=== PATIENT | male | born 1960 | race Caucasian/White ===

== ENCOUNTER 2020-03-22 14:45 | Inpatient (IN) | payer OTHER ==
[2020-03-22 16:28] VITALS: BMI 27.8
[2020-03-22] MEDS ORDERED: ACETAMINOPHEN 325 MG TABLET (FP) PO PRN ×3 (17:46→18:46)
[2020-03-22] MEDS ORDERED: MAGNESIUM CITRATE 300 ML BOTTLE PO PRN ×2 (17:46→18:46)
[2020-03-22] MEDS ORDERED: MAGNESIUM HYDROX 2400MG/30ML ORAL SUSPENSION 30 ML CUP PO PRN (17:46)
[2020-03-22] MEDS ORDERED: MAG HYDROX/AL HYDROX/SIMETH 30 ML UNIT-DOSE CUP PO PRN ×2 (17:46→18:46)
[2020-03-22] MEDS ORDERED: METHOCARBAMOL 500 MG TABLET PO PRN (17:46)
[2020-03-22] MEDS ORDERED: IBUPROFEN 400 MG TABLET (FP) PO PRN ×2 (17:46→18:46)
[2020-03-22] MEDS ORDERED: BISMUTH SUBSALICYLATE 524 MG/30 ML UD PO PRN (17:46)
[2020-03-22] MEDS ORDERED: chlordiazePOXIDE HCL 25 MG CAPSULE PO PRN (17:46)
[2020-03-22] MEDS ORDERED: ONDANSETRON *ODT* 4 MG TABLET SL PRN (17:46)
[2020-03-22] MEDS ORDERED: MENTHOL/PHENOL 1 EACH UD MM PRN (17:46)
[2020-03-22] MEDS ORDERED: LOPERAMIDE HCL 2 MG CAPSULE PO PRN (18:46)
[2020-03-22] MEDS ORDERED: P-EPHED 60MG/TRIPROLIDI 2.5MG TABLET PO PRN (18:46)
[2020-03-22] MEDS ORDERED: guaiFENesin 200 MG/10 ML 10 ML UNIT-DOSE CUPS PO PRN (18:46)
[2020-03-22] MEDS ORDERED: TUBERCULIN PPD 5 TU/0.1ML VIAL ID ONE (19:38)
[2020-03-22] MEDS ORDERED: THIAMINE HCL 100 MG TABLET (FP) PO SCH (22:00)
[2020-03-22] MEDS ORDERED: MELATONIN 5 MG TABLETS PO SCH (22:00)
[2020-03-22] MEDS: MELATONIN 5 MG TABLETS PO SCH (22:06)
[2020-03-22] MEDS: THIAMINE HCL 100 MG TABLET (FP) PO SCH (22:09)
[2020-03-22] MEDS ORDERED: chlordiazePOXIDE HCL 25 MG CAPSULE PO SCH (23:00)
[2020-03-23] MEDS ORDERED: MASKS NR ONE (06:23)
[2020-03-23] MEDS: PRENATAL VITAMINS W/ FOLIC ACID TABLET (FP) PO SCH (09:19)
[2020-03-23] MEDS ORDERED: PRENATAL VITAMINS W/ FOLIC ACID TABLET (FP) PO SCH (10:00)
[2020-03-23] MEDS ORDERED: METHADONE HCL 10 MG TABLET PO ONE (10:15)
[2020-03-23 12:09] LABS: HEMATOCRIT 28.4 % (35.4-49); HEMOGLOBIN 9.5 GM/dL (11.7-16.9); MCH 32.1 pg (25.7-33.7); MCHC 33.4 g/dl (32.0-35.9); MEAN CELL VOLUME 96.1 fl (80-96); MEAN PLT VOLUME 8.1 fl (7.5-11.1); PLATELET COUNT 280 K/MM3 (134-434); POTASSIUM 4.8 mmol/L (3.5-5.1); RBC 2.95 M/mm3 (4.00-5.60); RDW 14.7 % (11.9-15.9); WHITE BLOOD COUNT 6.8 K/mm3 (4.0-10.0)
[2020-03-23 12:13] LABS: CALCIUM 9.2 mg/dL (8.5-10.1)
[2020-03-23 12:15] LABS: ALBUMIN 2.8 g/dl (3.4-5.0); BLOOD UREA NITROGEN 50.7 mg/dL (7-18)
[2020-03-23 12:16] LABS: BILIRUBIN,TOTAL 0.5 mg/dL (0.2-1); TOT PROT 6.3 g/dl (6.4-8.2)
[2020-03-23] MEDS: ASPIRIN COATED 81 MG TABLET.EC PO SCH (12:16)
[2020-03-23 12:17] LABS: CREATININE 3.6 mg/dL (0.55-1.3)
[2020-03-23 16:01] LABS: HIV INTERPRETATION NEGATIVE (NEGATIVE)
[2020-03-23] MEDS: THIAMINE HCL 100 MG TABLET (FP) PO SCH (21:33)
[2020-03-23] MEDS: METOPROLOL TARTRATE 25 MG TABLET (FP) PO SCH (21:33)
[2020-03-23] MEDS: MELATONIN 5 MG TABLETS PO SCH (21:33)
[2020-03-24] MEDS ORDERED: chlordiazePOXIDE HCL 25 MG CAPSULE PO SCH (05:00)
[2020-03-24] MEDS: METHADONE HCL 10 MG TABLET PO SCH (06:28)
[2020-03-24] MEDS: METOPROLOL TARTRATE 25 MG TABLET (FP) PO SCH ×2 (10:15→21:19)
[2020-03-24] MEDS: ASPIRIN COATED 81 MG TABLET.EC PO SCH (10:15)
[2020-03-24] MEDS: PRENATAL VITAMINS W/ FOLIC ACID TABLET (FP) PO SCH (10:16)
[2020-03-24 12:20] LABS: URINE APPEARANCE CLEAR; URINE BILIRUBIN NEGATIVE (NEGATIVE); URINE COLOR YELLOW; URINE GLUCOSE (UA) NEGATIVE (NEGATIVE); URINE KETONE NEGATIVE (NEGATIVE); URINE LEUK ESTERASE NEGATIVE (NEGATIVE); URINE NITRITE NEGATIVE (NEGATIVE); URINE PROTEIN NEGATIVE (NEGATIVE); URINE UROBILINOGEN 0.2 mg/dL (0.2-1.0)
[2020-03-24] MEDS: MELATONIN 5 MG TABLETS PO SCH (21:19)
[2020-03-24] MEDS: THIAMINE HCL 100 MG TABLET (FP) PO SCH (21:19)
[2020-03-25] MEDS ORDERED: chlordiazePOXIDE HCL 10 MG CAPSULE PO PRN
[2020-03-25] MEDS ORDERED: chlordiazePOXIDE HCL 10 MG CAPSULE PO SCH (05:00)
[2020-03-25] MEDS: METHADONE HCL 10 MG TABLET PO SCH (06:21)
[2020-03-25] MEDS: METOPROLOL TARTRATE 25 MG TABLET (FP) PO SCH ×2 (09:45→21:50)
[2020-03-25] MEDS: PRENATAL VITAMINS W/ FOLIC ACID TABLET (FP) PO SCH (09:45)
[2020-03-25] MEDS: ASPIRIN COATED 81 MG TABLET.EC PO SCH (09:45)
[2020-03-25] MEDS: FERROUS SO4 325 MG TABLET (FP) PO SCH ×2 (12:59→17:50)
[2020-03-25] MEDS: CEPHALEXIN MONOHYDRATE 500 MG CAPSULE (UD) PO SCH ×3 (12:59→23:24)
[2020-03-25] MEDS: DOCUSATE SODIUM 100 MG CAPSULE (FP) PO SCH ×2 (13:01→21:50)
[2020-03-25] MEDS: THIAMINE HCL 100 MG TABLET (FP) PO SCH (21:50)
[2020-03-25] MEDS: MELATONIN 5 MG TABLETS PO SCH (21:50)
[2020-03-26] MEDS ORDERED: chlordiazePOXIDE HCL 10 MG CAPSULE PO SCH (05:00)
[2020-03-26] MEDS: CEPHALEXIN MONOHYDRATE 500 MG CAPSULE (UD) PO SCH ×4 (06:13→23:03)
[2020-03-26] MEDS: METHADONE HCL 10 MG TABLET PO SCH (06:13)
[2020-03-26] MEDS: DOCUSATE SODIUM 100 MG CAPSULE (FP) PO SCH ×3 (06:14→21:16)
[2020-03-26] MEDS: METOPROLOL TARTRATE 25 MG TABLET (FP) PO SCH ×2 (10:25→21:16)
[2020-03-26] MEDS: FERROUS SO4 325 MG TABLET (FP) PO SCH ×3 (10:25→16:52)
[2020-03-26] MEDS: PRENATAL VITAMINS W/ FOLIC ACID TABLET (FP) PO SCH (10:25)
[2020-03-26] MEDS: ASPIRIN COATED 81 MG TABLET.EC PO SCH (10:25)
[2020-03-26] MEDS: THIAMINE HCL 100 MG TABLET (FP) PO SCH (21:16)
[2020-03-26] MEDS: MELATONIN 5 MG TABLETS PO SCH (21:17)
[2020-03-26] MEDS: MAGNESIUM HYDROX 2400MG/30ML ORAL SUSPENSION 30 ML CUP PO PRN (21:18)
[2020-03-27] MEDS ORDERED: chlordiazePOXIDE HCL 10 MG CAPSULE PO ONE (05:00)
[2020-03-27] MEDS: METHADONE HCL 10 MG TABLET PO SCH (06:39)
[2020-03-27] MEDS: CEPHALEXIN MONOHYDRATE 500 MG CAPSULE (UD) PO SCH ×3 (06:39→17:00)
[2020-03-27] MEDS: DOCUSATE SODIUM 100 MG CAPSULE (FP) PO SCH ×3 (06:39→21:16)
[2020-03-27] MEDS: METOPROLOL TARTRATE 25 MG TABLET (FP) PO SCH ×2 (09:32→21:16)
[2020-03-27] MEDS: ASPIRIN COATED 81 MG TABLET.EC PO SCH (09:32)
[2020-03-27] MEDS: PRENATAL VITAMINS W/ FOLIC ACID TABLET (FP) PO SCH (09:32)
[2020-03-27] MEDS: FERROUS SO4 325 MG TABLET (FP) PO SCH ×3 (09:32→17:00)
[2020-03-27] MEDS: THIAMINE HCL 100 MG TABLET (FP) PO SCH (21:16)
[2020-03-27] MEDS: MELATONIN 5 MG TABLETS PO SCH (21:16)
[2020-03-27] MEDS: MAGNESIUM HYDROX 2400MG/30ML ORAL SUSPENSION 30 ML CUP PO PRN (21:17)
[2020-03-28] MEDS: CEPHALEXIN MONOHYDRATE 500 MG CAPSULE (UD) PO SCH ×4 (00:35→18:10)
[2020-03-28] MEDS: METHADONE HCL 10 MG TABLET PO SCH (06:18)
[2020-03-28] MEDS: DOCUSATE SODIUM 100 MG CAPSULE (FP) PO SCH ×3 (06:19→21:41)
[2020-03-28] MEDS: FERROUS SO4 325 MG TABLET (FP) PO SCH ×3 (07:22→18:10)
[2020-03-28] MEDS: ASPIRIN COATED 81 MG TABLET.EC PO SCH (09:16)
[2020-03-28] MEDS: PRENATAL VITAMINS W/ FOLIC ACID TABLET (FP) PO SCH (09:16)
[2020-03-28] MEDS: METOPROLOL TARTRATE 25 MG TABLET (FP) PO SCH ×2 (09:16→21:40)
[2020-03-28] MEDS: THIAMINE HCL 100 MG TABLET (FP) PO SCH (21:41)
[2020-03-28] MEDS: MELATONIN 5 MG TABLETS PO SCH (21:41)
[2020-03-29] MEDS: CEPHALEXIN MONOHYDRATE 500 MG CAPSULE (UD) PO SCH ×5 (00:02→23:26)
[2020-03-29] MEDS: METHADONE HCL 10 MG TABLET PO SCH (06:17)
[2020-03-29] MEDS: DOCUSATE SODIUM 100 MG CAPSULE (FP) PO SCH ×3 (06:17→21:04)
[2020-03-29] MEDS: METOPROLOL TARTRATE 25 MG TABLET (FP) PO SCH ×2 (09:51→21:04)
[2020-03-29] MEDS: FERROUS SO4 325 MG TABLET (FP) PO SCH ×3 (09:51→18:17)
[2020-03-29] MEDS: PRENATAL VITAMINS W/ FOLIC ACID TABLET (FP) PO SCH (09:51)
[2020-03-29] MEDS: ASPIRIN COATED 81 MG TABLET.EC PO SCH (09:51)
[2020-03-29] MEDS: THIAMINE HCL 100 MG TABLET (FP) PO SCH (21:04)
[2020-03-29] MEDS: MELATONIN 5 MG TABLETS PO SCH (21:04)
[2020-03-30] MEDS: DOCUSATE SODIUM 100 MG CAPSULE (FP) PO SCH ×3 (06:23→21:32)
[2020-03-30] MEDS: CEPHALEXIN MONOHYDRATE 500 MG CAPSULE (UD) PO SCH ×4 (06:23→23:14)
[2020-03-30] MEDS: METHADONE HCL 10 MG TABLET PO SCH (06:23)
[2020-03-30] MEDS: ASPIRIN COATED 81 MG TABLET.EC PO SCH (10:13)
[2020-03-30] MEDS: METOPROLOL TARTRATE 25 MG TABLET (FP) PO SCH ×2 (10:13→21:32)
[2020-03-30] MEDS: FERROUS SO4 325 MG TABLET (FP) PO SCH ×3 (10:13→17:36)
[2020-03-30] MEDS: PRENATAL VITAMINS W/ FOLIC ACID TABLET (FP) PO SCH (10:14)
[2020-03-30] MEDS: MELATONIN 5 MG TABLETS PO SCH (21:32)
[2020-03-30] MEDS: THIAMINE HCL 100 MG TABLET (FP) PO SCH (21:32)
[2020-03-31] MEDS: DOCUSATE SODIUM 100 MG CAPSULE (FP) PO SCH ×3 (06:02→21:44)
[2020-03-31] MEDS: CEPHALEXIN MONOHYDRATE 500 MG CAPSULE (UD) PO SCH ×4 (06:02→23:48)
[2020-03-31] MEDS: METHADONE HCL 10 MG TABLET PO SCH (06:02)
[2020-03-31] MEDS: FERROUS SO4 325 MG TABLET (FP) PO SCH ×3 (09:56→17:04)
[2020-03-31] MEDS: METOPROLOL TARTRATE 25 MG TABLET (FP) PO SCH ×2 (09:56→21:44)
[2020-03-31] MEDS: ASPIRIN COATED 81 MG TABLET.EC PO SCH (09:56)
[2020-03-31] MEDS: PRENATAL VITAMINS W/ FOLIC ACID TABLET (FP) PO SCH (09:57)
[2020-03-31] MEDS: MELATONIN 5 MG TABLETS PO SCH (21:44)
[2020-03-31] MEDS: THIAMINE HCL 100 MG TABLET (FP) PO SCH (21:44)
[2020-04-01] MEDS: DOCUSATE SODIUM 100 MG CAPSULE (FP) PO SCH (06:07)
[2020-04-01] MEDS: METHADONE HCL 10 MG TABLET PO SCH (06:07)
[2020-04-01] MEDS: CEPHALEXIN MONOHYDRATE 500 MG CAPSULE (UD) PO SCH (06:07)
[2020-04-01 07:03] VITALS: BP 137/74; PULSE 72; TEMP 98
[2020-04-01] MEDS: FERROUS SO4 325 MG TABLET (FP) PO SCH (09:37)
[2020-04-01] MEDS: METOPROLOL TARTRATE 25 MG TABLET (FP) PO SCH (09:38)
[2020-04-01] MEDS: ASPIRIN COATED 81 MG TABLET.EC PO SCH (09:38)
[2020-04-01] MEDS: PRENATAL VITAMINS W/ FOLIC ACID TABLET (FP) PO SCH (09:38)
== END 2020-04-01 09:54 | disposition home or self-care (01) | DRG 895 ==
LOC: YASAS 14:45 → Y6N 18:05 → UNDOADMIN 18:05 → Y5N 19:13
PROVIDERS: ADMIT Allergy & Immunology; ATTEND Allergy & Immunology
PROC: HZ42ZZZ Group Counseling for Substance Abuse Treatment, Cognitive-Behavioral (ICD-10-PCS; principal; 2020-03-22)
DX: F10.20 Alcohol dependence, uncomplicated (principal); F11.20 Opioid dependence, uncomplicated; L03.113 Cellulitis of right upper limb; F14.10 Cocaine abuse, uncomplicated; I25.10 Atherosclerotic heart disease of native coronary artery without angina pectoris; I10 Essential (primary) hypertension; Z95.5 Presence of coronary angioplasty implant and graft; E78.5 Hyperlipidemia, unspecified; Z56.0 Unemployment, unspecified
CPT/HCPCS: 36415; 80053; 81003; 85027; 86593; 86780; 87389; 93005; 93010

== ENCOUNTER 2021-10-26 18:13 | Inpatient (IN) | payer OTHER ==
[2021-10-26 20:53] VITALS: BMI 26.9
[2021-10-26] MEDS ORDERED: MAG HYDROX/AL HYDROX/SIMETH 30 ML UNIT-DOSE CUP PO PRN (21:57)
[2021-10-26] MEDS ORDERED: guaiFENesin 200 MG/10 ML 10 ML UNIT-DOSE CUPS PO PRN (21:57)
[2021-10-26] MEDS ORDERED: MAGNESIUM CITRATE 300 ML BOTTLE PO PRN (21:57)
[2021-10-26] MEDS ORDERED: MAGNESIUM HYDROX 2400MG/30ML ORAL SUSPENSION 30 ML CUP PO PRN (21:57)
[2021-10-26] MEDS ORDERED: P-EPHED 60MG/TRIPROLIDI 2.5MG TABLET PO PRN (21:57)
[2021-10-27] MEDS ORDERED: methaDONE 40 MG, methaDONE 20 MG PO ONE (09:45)
[2021-10-27] MEDS ORDERED: PATIENT'S OWN MEDICATION (NON-FORMULARY) (Methadone 60 MG) PO SCH (09:45)
[2021-10-27] MEDS: METOPROLOL TARTRATE 25 MG TABLET (FP) PO SCH ×2 (10:06→21:41)
[2021-10-27] MEDS: ASPIRIN COATED 81 MG TABLET.EC PO SCH (10:06)
[2021-10-27] MEDS: PRENATAL VITAMINS W/ FOLIC ACID TABLET (FP) PO SCH (10:06)
[2021-10-27 10:27] LABS: HEMOGLOBIN 9.5 GM/dL (11.7-16.9); MCH 33.3 pg (25.7-33.7); MCHC 32.8 g/dl (32.0-35.9); MEAN CELL VOLUME 101.6 fl (80-96); MEAN PLT VOLUME 8.7 fl (7.5-11.1); PLATELET COUNT 200 10^3/uL (134-434); RBC 2.85 M/mm3 (4.00-5.60); RDW 15.4 % (11.9-15.9); WHITE BLOOD COUNT 4.6 K/mm3 (4.0-10.0)
[2021-10-27 10:29] LABS: PH,URINE 5.5 (5.0-8.0); URINE APPEARANCE CLEAR; URINE BILIRUBIN NEGATIVE (NEGATIVE); URINE COLOR YELLOW; URINE GLUCOSE (UA) NEGATIVE (NEGATIVE); URINE KETONE NEGATIVE (NEGATIVE); URINE LEUK ESTERASE NEGATIVE (NEGATIVE); URINE NITRITE NEGATIVE (NEGATIVE); URINE PROTEIN NEGATIVE (NEGATIVE); URINE UROBILINOGEN 0.2 mg/dL (0.2-1.0)
[2021-10-27 10:29] LABS: ALBUMIN 3.2 g/dl (3.4-5.0); CALCIUM 8.7 mg/dL (8.5-10.1)
[2021-10-27 10:30] LABS: BLOOD UREA NITROGEN 35.2 mg/dL (7-18)
[2021-10-27 10:32] LABS: CREATININE 2.5 mg/dL (0.55-1.3)
[2021-10-27 10:34] LABS: TOT PROT 6.9 g/dl (6.4-8.2)
[2021-10-27 10:35] LABS: BILIRUBIN,TOTAL 0.3 mg/dL (0.2-1)
[2021-10-27 13:09] LABS: HIV INTERPRETATION NEGATIVE (NEGATIVE)
[2021-10-27] MEDS ORDERED: TUBERCULIN PPD 5 TU/0.1ML VIAL ID ONE (15:51)
[2021-10-27] MEDS: MELATONIN 5 MG TABLETS PO SCH ×2 (17:35→21:41)
[2021-10-27] MEDS: THIAMINE HCL 100 MG TABLET (FP) PO SCH ×2 (17:36→21:41)
[2021-10-28] MEDS: methaDONE 40 MG, methaDONE 20 MG PO SCH (06:22)
[2021-10-28] MEDS: PRENATAL VITAMINS W/ FOLIC ACID TABLET (FP) PO SCH (09:50)
[2021-10-28] MEDS: METOPROLOL TARTRATE 25 MG TABLET (FP) PO SCH ×2 (09:51→21:19)
[2021-10-28] MEDS: ASPIRIN COATED 81 MG TABLET.EC PO SCH (09:51)
[2021-10-28] MEDS: LOPERAMIDE HCL 2 MG CAPSULE PO PRN (21:19)
[2021-10-28] MEDS: MELATONIN 5 MG TABLETS PO SCH (21:19)
[2021-10-28] MEDS: THIAMINE HCL 100 MG TABLET (FP) PO SCH (21:19)
[2021-10-29] MEDS: methaDONE 40 MG, methaDONE 20 MG PO SCH (06:36)
[2021-10-29] MEDS: ACETAMINOPHEN 325 MG TABLET (FP) PO PRN ×2 (09:06→16:51)
[2021-10-29] MEDS: ASPIRIN COATED 81 MG TABLET.EC PO SCH (09:44)
[2021-10-29] MEDS: PRENATAL VITAMINS W/ FOLIC ACID TABLET (FP) PO SCH (09:44)
[2021-10-29] MEDS: METOPROLOL TARTRATE 25 MG TABLET (FP) PO SCH ×2 (09:44→21:38)
[2021-10-29] MEDS: LOPERAMIDE HCL 2 MG CAPSULE PO PRN ×2 (13:34→21:39)
[2021-10-29] MEDS: MELATONIN 5 MG TABLETS PO SCH (21:38)
[2021-10-29] MEDS: THIAMINE HCL 100 MG TABLET (FP) PO SCH (21:38)
[2021-10-30] MEDS: methaDONE 40 MG, methaDONE 20 MG PO SCH (06:12)
[2021-10-30] MEDS: PRENATAL VITAMINS W/ FOLIC ACID TABLET (FP) PO SCH (10:57)
[2021-10-30] MEDS: METOPROLOL TARTRATE 25 MG TABLET (FP) PO SCH ×2 (10:57→21:44)
[2021-10-30] MEDS: ASPIRIN COATED 81 MG TABLET.EC PO SCH (11:00)
[2021-10-30] MEDS: THIAMINE HCL 100 MG TABLET (FP) PO SCH (21:44)
[2021-10-30] MEDS: MELATONIN 5 MG TABLETS PO SCH (21:44)
[2021-10-31] MEDS: methaDONE 40 MG, methaDONE 20 MG PO SCH (06:12)
[2021-10-31] MEDS: ASPIRIN COATED 81 MG TABLET.EC PO SCH (10:27)
[2021-10-31] MEDS: PRENATAL VITAMINS W/ FOLIC ACID TABLET (FP) PO SCH (10:27)
[2021-10-31] MEDS: METOPROLOL TARTRATE 25 MG TABLET (FP) PO SCH ×2 (10:28→21:07)
[2021-10-31] MEDS: THIAMINE HCL 100 MG TABLET (FP) PO SCH (21:07)
[2021-10-31] MEDS: MELATONIN 5 MG TABLETS PO SCH (21:07)
[2021-11-01] MEDS: methaDONE 40 MG, methaDONE 20 MG PO SCH (06:15)
[2021-11-01] MEDS: ASPIRIN COATED 81 MG TABLET.EC PO SCH (09:20)
[2021-11-01] MEDS: PRENATAL VITAMINS W/ FOLIC ACID TABLET (FP) PO SCH (09:20)
[2021-11-01] MEDS: METOPROLOL TARTRATE 25 MG TABLET (FP) PO SCH ×2 (09:21→21:06)
[2021-11-01] MEDS: PSYLLIUM 5.85 GM PACKET PO SCH ×2 (10:20→21:07)
[2021-11-01] MEDS: ACETAMINOPHEN 325 MG TABLET (FP) PO PRN (16:34)
[2021-11-01] MEDS: THIAMINE HCL 100 MG TABLET (FP) PO SCH (21:06)
[2021-11-01] MEDS: MELATONIN 5 MG TABLETS PO SCH (21:06)
[2021-11-02] MEDS: methaDONE 40 MG, methaDONE 20 MG PO SCH (06:05)
[2021-11-02] MEDS: METOPROLOL TARTRATE 25 MG TABLET (FP) PO SCH ×2 (09:43→21:24)
[2021-11-02] MEDS: ASPIRIN COATED 81 MG TABLET.EC PO SCH (09:43)
[2021-11-02] MEDS: PRENATAL VITAMINS W/ FOLIC ACID TABLET (FP) PO SCH (09:43)
[2021-11-02] MEDS: PSYLLIUM 5.85 GM PACKET PO SCH ×2 (09:44→21:25)
[2021-11-02] MEDS: THIAMINE HCL 100 MG TABLET (FP) PO SCH (21:25)
[2021-11-02] MEDS: MELATONIN 5 MG TABLETS PO SCH (21:25)
[2021-11-03] MEDS: methaDONE 40 MG, methaDONE 20 MG PO SCH (06:22)
[2021-11-03] MEDS: PRENATAL VITAMINS W/ FOLIC ACID TABLET (FP) PO SCH (09:57)
[2021-11-03] MEDS: PSYLLIUM 5.85 GM PACKET PO SCH ×2 (09:57→21:10)
[2021-11-03] MEDS: ASPIRIN COATED 81 MG TABLET.EC PO SCH (09:58)
[2021-11-03] MEDS: METOPROLOL TARTRATE 25 MG TABLET (FP) PO SCH ×2 (09:58→21:09)
[2021-11-03] MEDS: THIAMINE HCL 100 MG TABLET (FP) PO SCH (21:09)
[2021-11-03] MEDS: MELATONIN 5 MG TABLETS PO SCH (21:09)
[2021-11-04] MEDS: methaDONE 40 MG, methaDONE 20 MG PO SCH (06:03)
[2021-11-04] MEDS: PRENATAL VITAMINS W/ FOLIC ACID TABLET (FP) PO SCH (09:52)
[2021-11-04] MEDS: METOPROLOL TARTRATE 25 MG TABLET (FP) PO SCH ×2 (09:52→21:22)
[2021-11-04] MEDS: ASPIRIN COATED 81 MG TABLET.EC PO SCH (09:52)
[2021-11-04] MEDS: PSYLLIUM 5.85 GM PACKET PO SCH ×2 (09:53→21:23)
[2021-11-04] MEDS: ACETAMINOPHEN 325 MG TABLET (FP) PO PRN (10:22)
[2021-11-04] MEDS: MELATONIN 5 MG TABLETS PO SCH (21:23)
[2021-11-04] MEDS: THIAMINE HCL 100 MG TABLET (FP) PO SCH (21:23)
[2021-11-05] MEDS: methaDONE 40 MG, methaDONE 20 MG PO SCH (06:01)
[2021-11-05] MEDS: METOPROLOL TARTRATE 25 MG TABLET (FP) PO SCH ×2 (09:39→21:12)
[2021-11-05] MEDS: ASPIRIN COATED 81 MG TABLET.EC PO SCH (09:39)
[2021-11-05] MEDS: PRENATAL VITAMINS W/ FOLIC ACID TABLET (FP) PO SCH (09:39)
[2021-11-05] MEDS: PSYLLIUM 5.85 GM PACKET PO SCH ×2 (09:40→21:13)
[2021-11-05] MEDS: ACETAMINOPHEN 325 MG TABLET (FP) PO PRN (16:45)
[2021-11-05] MEDS: MELATONIN 5 MG TABLETS PO SCH (21:12)
[2021-11-05] MEDS: THIAMINE HCL 100 MG TABLET (FP) PO SCH (21:13)
[2021-11-06] MEDS: methaDONE 40 MG, methaDONE 20 MG PO SCH (05:58)
[2021-11-06] MEDS: ACETAMINOPHEN 325 MG TABLET (FP) PO PRN (06:47)
[2021-11-06] MEDS: PRENATAL VITAMINS W/ FOLIC ACID TABLET (FP) PO SCH (10:04)
[2021-11-06] MEDS: ASPIRIN COATED 81 MG TABLET.EC PO SCH (10:04)
[2021-11-06] MEDS: PSYLLIUM 5.85 GM PACKET PO SCH ×2 (10:06→21:13)
[2021-11-06] MEDS: METOPROLOL TARTRATE 25 MG TABLET (FP) PO SCH ×2 (15:00→21:12)
[2021-11-06] MEDS: FERROUS SO4 325 MG TABLET (FP) PO SCH (15:24)
[2021-11-06] MEDS: MELATONIN 5 MG TABLETS PO SCH (21:12)
[2021-11-06] MEDS: THIAMINE HCL 100 MG TABLET (FP) PO SCH (21:12)
[2021-11-07] MEDS: methaDONE 40 MG, methaDONE 20 MG PO SCH (06:19)
[2021-11-07 07:01] VITALS: RESP 18
[2021-11-07] MEDS: ACETAMINOPHEN 325 MG TABLET (FP) PO PRN (08:34)
[2021-11-07] MEDS: PRENATAL VITAMINS W/ FOLIC ACID TABLET (FP) PO SCH (10:40)
[2021-11-07] MEDS: PSYLLIUM 5.85 GM PACKET PO SCH ×2 (10:41→21:07)
[2021-11-07] MEDS: ASPIRIN COATED 81 MG TABLET.EC PO SCH (10:42)
[2021-11-07] MEDS: METOPROLOL TARTRATE 25 MG TABLET (FP) PO SCH ×2 (10:42→21:06)
[2021-11-07] MEDS: FERROUS SO4 325 MG TABLET (FP) PO SCH (10:42)
[2021-11-07 13:22] LABS: ALBUMIN 3.2 g/dl (3.4-5.0); BLOOD UREA NITROGEN 47.7 mg/dL (7-18); CALCIUM 9.2 mg/dL (8.5-10.1)
[2021-11-07 13:23] LABS: CREATININE 2.6 mg/dL (0.55-1.3)
[2021-11-07 13:28] LABS: BILIRUBIN,TOTAL 0.2 mg/dL (0.2-1)
[2021-11-07] MEDS: IBUPROFEN 400 MG TABLET (FP) PO PRN (21:06)
[2021-11-07] MEDS: THIAMINE HCL 100 MG TABLET (FP) PO SCH (21:06)
[2021-11-07] MEDS: MELATONIN 5 MG TABLETS PO SCH (21:06)
[2021-11-08] MEDS: methaDONE 40 MG, methaDONE 20 MG PO SCH (06:09)
[2021-11-08] MEDS ORDERED: SODIUM POLYSTYRENE SULFONATE 15 GM/60 ML BOTTLE PO ONE (10:00)
[2021-11-08] MEDS: PRENATAL VITAMINS W/ FOLIC ACID TABLET (FP) PO SCH (10:35)
[2021-11-08] MEDS: ASPIRIN COATED 81 MG TABLET.EC PO SCH (10:36)
[2021-11-08] MEDS: METOPROLOL TARTRATE 25 MG TABLET (FP) PO SCH ×2 (10:36→21:10)
[2021-11-08] MEDS: FERROUS SO4 325 MG TABLET (FP) PO SCH (10:36)
[2021-11-08] MEDS: PSYLLIUM 5.85 GM PACKET PO SCH ×2 (10:37→21:10)
[2021-11-08] MEDS: THIAMINE HCL 100 MG TABLET (FP) PO SCH (21:09)
[2021-11-08] MEDS: MELATONIN 5 MG TABLETS PO SCH (21:09)
[2021-11-08] MEDS: IBUPROFEN 400 MG TABLET (FP) PO PRN (21:10)
[2021-11-09] MEDS: methaDONE 40 MG, methaDONE 20 MG PO SCH (06:00)
[2021-11-09 06:59] VITALS: PULSE 62; TEMP 97.8
[2021-11-09] MEDS: ASPIRIN COATED 81 MG TABLET.EC PO SCH (09:58)
[2021-11-09] MEDS: FERROUS SO4 325 MG TABLET (FP) PO SCH (09:58)
[2021-11-09] MEDS: PRENATAL VITAMINS W/ FOLIC ACID TABLET (FP) PO SCH (09:58)
[2021-11-09] MEDS: METOPROLOL TARTRATE 25 MG TABLET (FP) PO SCH (09:58)
[2021-11-09] MEDS: PSYLLIUM 5.85 GM PACKET PO SCH (09:59)
[2021-11-09 11:14] VITALS: BP 148/71
[2021-11-09] MEDS ORDERED: SODIUM ZIRCONIUM CYCLOSILICATE (LOKELMA) 5 GM PACKET PO SCH (14:00)
[2021-11-09] MEDS ORDERED: POTASSIUM CHLORIDE TABS 20 MEQ TABLET.ER (FP) PO SCH (22:00)
== END 2021-11-09 13:29 | disposition home or self-care (01) | DRG 895 ==
LOC: YASAS 18:13 → Y3W 23:23
PROVIDERS: ADMIT Allergy & Immunology; ATTEND Allergy & Immunology
PROC: HZ42ZZZ Group Counseling for Substance Abuse Treatment, Cognitive-Behavioral (ICD-10-PCS; principal; 2021-10-26)
DX: F10.20 Alcohol dependence, uncomplicated (principal); F11.20 Opioid dependence, uncomplicated; F14.20 Cocaine dependence, uncomplicated; I10 Essential (primary) hypertension; I25.10 Atherosclerotic heart disease of native coronary artery without angina pectoris; E78.5 Hyperlipidemia, unspecified; Z87.891 Personal history of nicotine dependence; Z95.5 Presence of coronary angioplasty implant and graft
CPT/HCPCS: 36415; 80053; 81003; 84132; 85027; 86593; 86780; 87389; C9803-CS; U0003; U0005